=== PATIENT | male | born 1945 | race Caucasian/White ===

== ENCOUNTER 2017-07-26 08:41 | Day surgery (SDC) | payer BC, MEDICARE ==
[~2017-07-26] VITALS: Ht 180.3 cm; Wt 130.8 kg
[~2017-07-26 08:41] MED LIST: ADVIL200 MG PO; NORCO 325 MG-51 TAB PO; NORVASC 10MG10 MG PO; PRINIVIL10 MG PO
[2017-07-26 09:08] VITALS: BP 108/70; PULSE 55; TEMP 98.6
[2017-07-26 10:45] VITALS: BP 114/66; PULSE 53; TEMP 98
[2017-07-26 11:00] VITALS: BP 127/68; PULSE 47
[2017-07-26 11:15] VITALS: BP 109/71; PULSE 53
[2017-07-26 11:16] VITALS: BP 125/74; PULSE 52
== END 2017-07-26 11:25 ==
LOC: SDCO 08:41
DX: Z12.11 Encounter for screening for malignant neoplasm of colon (principal); K62.1 Rectal polyp; K63.89 Other specified diseases of intestine; I10 Essential (primary) hypertension; Z86.010 Personal history of colon polyps; Z85.038 Personal history of other malignant neoplasm of large intestine
CPT/HCPCS: J2250; J3010

== ENCOUNTER 2020-07-29 07:40 | Day surgery (SDC) | payer MEDICARE, BC ==
[~2020-07-29] VITALS: Ht 180.3 cm; Wt 115.5 kg
[2020-07-29 08:31] VITALS: BP 136/89; PULSE 70; TEMP 97.7
--- NOTE | 2020-07-29 09:15 | NUR ---
Initial visit; Patient thanked Final Inspector And Tester for visiting and offering prayer for him prior to his 'Procedure.' Patient talked at length about his meeting with a Final Inspector And Tester in [facility] and his experiences when he returned home from [facility]. Final Inspector And Tester listened and sincerely thanked him for his service.
[2020-07-29 10:20] VITALS: BP 119/90; PULSE 46; TEMP 98
[2020-07-29 10:35] VITALS: BP 122/76; PULSE 46
[2020-07-29 10:50] VITALS: BP 120/64; PULSE 43
--- NOTE | 2020-07-29 11:28 | NUR ---
Pt returned via cart to [place] [id number] at 1020. Pt ambulated to recliner in bed without difficulty. VSS-see flowsheet. Given water per request and tolerated. Denied complaints. Dr Bhandari was in to visit with patient after procedure. IV removed and pressure dressing applied. Discharge teaching completed, pt verbalized understanding. Pt dressed independently. Take via wheelchair to private vehicle with brother, Leobardo, to drive pt home.
== END 2020-07-29 11:28 | disposition home or self-care (01) ==
LOC: SDCO 07:40
DX: Z12.11 Encounter for screening for malignant neoplasm of colon (principal); D12.5 Benign neoplasm of sigmoid colon; K57.30 Diverticulosis of large intestine without perforation or abscess without bleeding; I10 Essential (primary) hypertension; M19.90 Unspecified osteoarthritis, unspecified site; F17.220 Nicotine dependence, chewing tobacco, uncomplicated; Z98.0 Intestinal bypass and anastomosis status; Z85.038 Personal history of other malignant neoplasm of large intestine
CPT/HCPCS: J2704; J7030